=== PATIENT | female | born 1990 | race African-American/Black ===

== ENCOUNTER 2017-03-02 01:21 | Emergency (ER) | payer MEDICAID ==
[~2017-03-02] VITALS: Ht 175.3 cm; Wt 76.7 kg
[2017-03-02 01:25] VITALS: Ht 175.3 cm; Wt 76.7 kg
[2017-03-02 04:57] VITALS: BP 150/86
== END 2017-03-02 04:57 | disposition home or self-care (01) ==
LOC: ED 01:21
DX: J02.9 Acute pharyngitis, unspecified (principal); H66.91 Otitis media, unspecified, right ear
CPT/HCPCS: J1100; J1885